=== PATIENT | female | born 1955 | race Caucasian/White ===

== ENCOUNTER 2021-01-23 13:20 | Observation (INO) ==
[2021-01-23] MEDS ORDERED: NS 0.9% 1000 ml BAG 1,000 ML IV ONE (14:32)
[2021-01-23 15:36] LABS: ABS Eosinophils 0.1 10^3/ul (0-0.6); ABS Lymphocytes 0.8 10^3/ul (1.0-4.8); ABS Monocytes 0.2 10^3/ul (0-0.8); ABS Neutrophils 14.1 10^3/ul (1.5-7.7); Eosinophil % 0.4 %; Hematocrit 40 % (35-47); Hemoglobin 13.8 g/dL (12.0-16.0); Mean Corpuscular HGB Conc 35 g/dL (31-36); Mean Corpuscular Hemoglobin 32 pg (27-31); Mean Corpuscular Volume 92 fL (80-97); Platelet Count 337 10^3/uL (150-450); Red Blood Count 4.33 10^6 /uL (3.70-4.87); Red Cell Distribution Width 13 % (10-15); White Blood Count 15.1 10^3/uL (3.5-10.8)
[2021-01-23] MEDS ORDERED: cefTRIAXone 2 GM ADDV.VIAL 2 GM in NS 0.9% 100 ml BAG 100 ML IVPB ONE (15:41)
[2021-01-23 16:06] LABS: Urine Appearance Cloudy; Urine Bilirubin Negative (Negative); Urine Blood 3+ (Negative); Urine Color Yellow; Urine Glucose Negative (Negative); Urine Ketones Negative (Negative); Urine Nitrite Negative (Negative); Urine Protein 2+(100 mg/dL) (Negative); Urine Specific Gravity 1.016 (1.002-1.030); Urine Urobilinogen Negative (Negative)
[2021-01-23 16:07] LABS: ALT 31 U/L (7-52); AST 17 U/L (13-39); Albumin 4.6 g/dL (3.2-5.2); Albumin/Globulin Ratio 1.5 (1-3); Alkaline Phosphatase 118 U/L (35-149); Anion Gap 7 mmol/L (2-11); Blood Urea Nitrogen 13 mg/dL (6-24); C Reactive Protein 6.72 mg/L (<8.01); CO2 Carbon Dioxide 29 mmol/L (22-32); Calcium 9.6 mg/dL (8.6-10.3); Chloride 102 mmol/L (101-111); EGFR African American 96.8 (>60); Glucose 151 mg/dL (70-100); Sodium 138 mmol/L (135-145); Total Protein 7.6 g/dL (6.4-8.9)
[2021-01-23 16:10] LABS: Urine Amorphous Crystals Present (Absent); Urine Bacteria 1+ (Absent); Urine Red Blood Cell 3+(>10/hpf) (Absent); Urine Squamous Epithelial Cell Present (Absent); Urine White Blood Cell 3+(>20/hpf) (Absent)
[2021-01-23] MEDS ORDERED: Dextrose 50% Syringe 50 ml 25 GM/50 ML SYRINGE IV PUSH PRN (16:15)
[2021-01-23 16:22] LABS: Troponin I 0.03 ng/mL (<0.03)
[2021-01-23] MEDS ORDERED: NS 0.9% 1000 ml BAG 1,000 ML IV SCH (16:30)
[2021-01-23 16:49] LABS: Activated Partial Thrombo Time 30.3 seconds (26.0-38.0); INR 1.06 (0.86-1.15)
[2021-01-23] MEDS ORDERED: Iohexol 180 (CONTRAST) 20 ML SDV IV ONE (16:56)
[2021-01-23] MEDS ORDERED: Naloxone 0.4 mg VIAL 0.4 mg/ml 1 ml VIAL IV PRN (16:58)
[2021-01-23] MEDS ORDERED: oxyCODONE/Acetamin 5/325 mg TAB PO PRN (16:58)
[2021-01-23] MEDS ORDERED: DiMENhydriNATE IV 50 mg/ml 1 ml VIAL IV PUSH PRN (16:58)
[2021-01-23] MEDS ORDERED: Ondansetron 4 mg VIAL 2 MG/ML 2 ml VIAL IV PRN (16:58)
[2021-01-23] MEDS ORDERED: fentaNYL 100 mcg/2 ml 50 MCG/ML VIAL IV PRN (16:58)
[2021-01-23] MEDS ORDERED: Lidocaine 2% PF 5 ML VIAL ONE (17:34)
[2021-01-23] MEDS ORDERED: Propofol 10 MG/ML 20 ML BTL ONE (17:34)
[2021-01-23] MEDS ORDERED: Ketamine HCL 50 mg/ml 10 ml VIAL (500 MG) ONE (17:34)
[2021-01-23] MEDS ORDERED: Labetalol IV 5 MG/ML 20 ml VIAL ONE (18:04)
[2021-01-23] MEDS ORDERED: hydrALAZINE 20 mg/ml 1 ML Vial IV IV SLOW PU ONE (20:55)
[2021-01-23] MEDS ORDERED: hydrALAZINE 20 mg/ml 1 ML Vial IV ONE (21:01)
[2021-01-24 05:07] LABS: ABS Eosinophils 0.1 10^3/ul (0-0.6); ABS Lymphocytes 2.5 10^3/ul (1.0-4.8); ABS Monocytes 0.5 10^3/ul (0-0.8); ABS Neutrophils 6.8 10^3/ul (1.5-7.7); Eosinophil % 1.2 %; Hematocrit 36 % (35-47); Hemoglobin 12.1 g/dL (12.0-16.0); Lymphocyte % 24.9 %; Mean Corpuscular HGB Conc 34 g/dL (31-36); Mean Corpuscular Hemoglobin 32 pg (27-31); Mean Corpuscular Volume 94 fL (80-97); Platelet Count 288 10^3/uL (150-450); Red Cell Distribution Width 13 % (10-15)
[2021-01-24 05:27] LABS: Calcium 8.6 mg/dL (8.6-10.3); EGFR African American 123.8 (>60); EGFR Non-African American 102.3 (>60); Potassium 3.7 mmol/L (3.5-5.0)
[2021-01-24 07:24] VITALS: BP 158/52
[2021-01-24] MEDS ORDERED: Cholecalciferol (VIT D3) 1,000 unit TAB PO SCH (09:00)
[2021-01-24] MEDS ORDERED: cefTRIAXone 1 gm/50 mL NS BAG 1 GM/50 ML BAG IVPB SCH (16:00)
[2021-01-26] MEDS ORDERED: Scopolamine PATCH Remove NOTE PATCH OFF ONE (17:00)
== END 2021-01-24 12:25 | disposition home or self-care (01) ==
LOC: ED 13:20 → SSU 15:59 → INTOOBSV 15:59
PROVIDERS: ADMIT Internal Medicine; ATTEND Hospitalist

== ENCOUNTER 2023-12-31 10:35 | Observation (INO) ==
[2023-12-31] MEDS ORDERED: cefTRIAXone 2 gm/50 mL D5W 2 GM/50 ML BAG IV ONE (12:02)
[2023-12-31] MEDS ORDERED: Metoclopramide 5 MG/ML VIAL (10 mg) IV PRN (12:18)
[2023-12-31] MEDS ORDERED: Naloxone 0.4 mg VIAL 0.4 mg/ml 1 ml VIAL IV PRN (12:18)
[2023-12-31] MEDS ORDERED: fentaNYL 100 mcg/2 ml 50 MCG/ML VIAL IV PRN (12:18)
[2023-12-31] MEDS ORDERED: Scopolamine 1 mg/72hr PATCH ONE (12:28)
[2023-12-31 12:44] LABS: Rapid COVID-19 Molecular Undetected (Undetected)
[2023-12-31] MEDS ORDERED: Acetaminophen IV 1 GM/100ML 1,000 MG/100 ML BAG IV ONE (13:58)
[2023-12-31] MEDS: Acetaminophen IV 1 GM/100ML 1,000 MG/100 ML BAG IV ONE (14:01)
[2023-12-31] MEDS: Gentamicin ADULT 160 MG in NS 0.9% 100 ml BAG 100 ML IVPB ONE (14:14)
[2023-12-31] MEDS ORDERED: Midazolam 2 mg/2 ml VIAL 1 mg/ml 2 ml VIAL (2 mg) ONE (16:05)
[2023-12-31] MEDS ORDERED: fentaNYL 250 mcg/5 ml 50 MCG/ML 5 ml VIAL (250 MCG) ONE (16:05)
[2023-12-31] MEDS ORDERED: Iohexol 180 (CONTRAST) 10 ML SDV IV ONE (16:06)
[2023-12-31] MEDS ORDERED: Propofol 10 MG/ML 20 ML BTL ONE (16:08)
[2023-12-31] MEDS ORDERED: Lidocaine 2% PF 5 ML VIAL ONE (16:09)
[2023-12-31] MEDS ORDERED: Ondansetron 4 mg VIAL 2 MG/ML 2 ml VIAL ONE (16:19)
[2023-12-31] MEDS ORDERED: Dexamethasone IV 4 MG/ML VIAL 1 ml VIAL ONE (16:19)
[2023-12-31] MEDS ORDERED: Phenylephrine 40 mcg/mL 10mL (400mcg) SYRINGE ONE (16:26)
[2023-12-31] MEDS: Lactated Ringers 1000 ml BAG 1,000 ML IV SCH (18:44)
[2023-12-31] MEDS: Heparin 5000 UNITS/ML 1 mL VIAL SUBCUT SCH (21:48)
[2023-12-31] MEDS: PTO: Apremilast 30 mg TAB (NF) PO SCH (22:05)
[2024-01-01 05:49] LABS: Hemoglobin 11.3 g/dL (11.5-14.3); Mean Corpuscular Hgb Conc 32.4 g/dL (31-36); Mean Corpuscular Volume 92.6 fL (80-97); Mean Platelet Volume 8.8 fL (7.5-11.2); Platelet Count 226 10^3/uL (150-450); Red Blood Count 3.78 10^6/uL (3.63-4.92); Red Cell Distribution Width 13.4 % (12-17); White Blood Count 31.2 10^3/uL (3.8-11.8)
[2024-01-01 06:17] LABS: Potassium 4.3 mmol/L (3.5-5.0)
[2024-01-01 06:21] LABS: ABS Basophils 0.1 10^3/uL (0.0-0.1); ABS Lymphocytes 1.2 10^3/uL (1.0-4.8); ABS Monocytes 1.2 10^3/uL (0.0-0.9); ABS Neutrophils 28.7 10^3/uL (1.5-7.6); ABS Nucleated RBC 0.02 10^3/ul; Lymphocyte % 3.8 %; Nucleated Red Blood Cells % 0.1 %/100WBC (0.0-0.8)
[2024-01-01 06:24] LABS: Albumin 3.7 g/dL (3.2-5.2); Albumin/Globulin Ratio 1.9 (1-3); Calcium 8.3 mg/dL (8.6-10.3); Creatinine, Serum 1.02 mg/dL (0.51-0.95); Total Bilirubin 0.7 mg/dL (0.2-1.0); Total Protein 5.7 g/dL (6.4-8.9); eGFR CKD-EPI 59.9 (>60)
[2024-01-01] MEDS: Cholecalciferol (VIT D3) 1,000 unit TAB PO SCH (08:11)
[2024-01-01] MEDS: cefTRIAXone 1 gm/50 mL D5W 1 GM/50 ML BAG IV SCH (08:12)
[2024-01-01] MEDS: Lactated Ringers 1000 ml BAG 1,000 ML IV ONE (09:50)
[2024-01-01 11:21] LABS: Hematocrit 36.9 % (35-45); Mean Corpuscular Hgb Conc 32.7 g/dL (31-36); Mean Corpuscular Volume 91.9 fL (80-97); Mean Platelet Volume 8.8 fL (7.5-11.2); Platelet Count 246 10^3/uL (150-450); Red Blood Count 4.01 10^6/uL (3.63-4.92); Red Cell Distribution Width 13.5 % (12-17); White Blood Count 31.7 10^3/uL (3.8-11.8)
[2024-01-01 11:26] LABS: ABS Basophils 0.1 10^3/uL (0.0-0.1); ABS Lymphocytes 1.7 10^3/uL (1.0-4.8); ABS Monocytes 1.2 10^3/uL (0.0-0.9); ABS Neutrophils 28.7 10^3/uL (1.5-7.6); Eosinophil % 0.1 %; Lymphocyte % 5.5 %
[2024-01-02 06:48] LABS: ABS Eosinophils 0.1 10^3/uL (0.0-0.5); ABS Lymphocytes 1.9 10^3/uL (1.0-4.8); ABS Monocytes 0.8 10^3/uL (0.0-0.9); ABS Neutrophils 17.9 10^3/uL (1.5-7.6); Eosinophil % 0.6 %; Hematocrit 33.7 % (35-45); Hemoglobin 11.4 g/dL (11.5-14.3); Lymphocyte % 9.3 %; Mean Corpuscular Hemoglobin 30.9 pg (27-33); Mean Corpuscular Hgb Conc 33.8 g/dL (31-36); Mean Corpuscular Volume 91.5 fL (80-97); Mean Platelet Volume 8.9 fL (7.5-11.2); Platelet Count 230 10^3/uL (150-450); Red Blood Count 3.68 10^6/uL (3.63-4.92); Red Cell Distribution Width 12.9 % (12-17); White Blood Count 20.8 10^3/uL (3.8-11.8)
[2024-01-02 09:06] LABS: Albumin 3.6 g/dL (3.2-5.2); Albumin/Globulin Ratio 1.6 (1-3); C Reactive Protein 125.13 mg/L (<8.01); Calcium 8.8 mg/dL (8.6-10.3); Creatinine, Serum 0.73 mg/dL (0.51-0.95); Globulin 2.3 g/dL (2-4); Potassium 3.9 mmol/L (3.5-5.0); Total Bilirubin 0.4 mg/dL (0.2-1.0); Total Protein 5.9 g/dL (6.4-8.9); eGFR CKD-EPI 89.5 (>60)
[2024-01-02 10:01] VITALS: BP 160/69
== END 2024-01-02 14:20 | disposition home or self-care (01) ==
LOC: OR 10:35 → SSU 10:35
PROVIDERS: ADMIT Urology; ATTEND Internal Medicine